=== PATIENT | male | born 1995 | race Caucasian/White ===

== ENCOUNTER 2019-05-23 13:04 | Emergency (ER) | payer BC ==
[2019-05-23 13:33] VITALS: BP 112/66
[2019-05-23 13:58] LABS: Influenza A Molecular POSITIVE (Negative)
--- NOTE | 2019-05-23 14:15 | UC ---
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 He states that he is actually feeling better today. - History of Current Complaint Chief Complaint: UCGeneralIllness Stated Complaint: HEADACHE,THROAT PAIN,CHILLS Time Seen by Provider: 05/23/19 13:44 Hx Obtained From: Patient Onset/Duration: Sudden Onset Severity Currently: Mild Severity Initially: Moderate Pain Intensity: 5 Associated Signs & Symptoms: Positive: Fever, Myalgia, Cough, Sore Throat, Nasal Congestion Related Hx: Possible Flu/Infectious Exposure - Allergy/Home Medications Allergies/Adverse Reactions: Allergies Allergy/AdvReac Type Severity Reaction Status Date / Time No Known Allergies Allergy Verified 05/23/19 13:33 Home Medications: Home Medications NK [No Home Medications Reported] 05/23/19 [History Confirmed 05/23/19] PMH/Surg Hx/FS Hx/Imm Hx Previously Healthy: Yes - Surgical History Surgical History: None - Family History Known Family History: Positive: Non-Contributory - Social History Occupation: Employed Full-time Lives: With Family Alcohol Use: Occasionally Substance Use Type: None Smoking Status (MU): Never Smoked Tobacco Review of Systems All Other Systems Reviewed And Are Negative: Yes Constitutional: Positive: Fever, Chills ENT: Positive: Sore Throat, Nasal Discharge Respiratory: Positive: Cough - Nonproductive dry cough Gastrointestinal: Positive: Vomiting - He vomited one time yesterday Musculoskeletal: Positive: Myalgia Is Patient Immunocompromised?: No Physical Exam Triage Information Reviewed: Yes Appearance: Well-Appearing, No Pain Distress, Well-Nourished Vital Signs: Initial Vital Signs Temp 98 F 05/23/19 13:30 Pulse 100 05/23/19 13:30 Resp 20 05/23/19 13:30 BP 112/66 05/23/19 13:30 Pulse Ox 100 05/23/19 13:30 Vital Signs Reviewed: Yes Eyes: Positive: Conjunctiva Clear ENT: Positive: Pharynx normal, Nasal drainage, TMs normal, Uvula midline Neck: Positive: Supple, Nontender, No Lymphadenopathy Respiratory: Positive: Lungs clear, Normal breath sounds, No respiratory distress, No accessory muscle use Cardiovascular: Positive: RRR, No Murmur, Pulses Normal, Brisk Capillary Refill Abdomen Description: Positive: Nontender, No Organomegaly, Soft. Negative: CVA Tenderness (R), CVA Tenderness (L), Distended, Guarding, Hepatomegaly, McBurney' s Point Tenderness, Splenomegaly Bowel Sounds: Positive: Present Musculoskeletal Exam: Normal Neurological Exam: Normal Psychological Exam: Normal Skin Exam: Normal Flu Course/Dx - Course Course Of Treatment: Rapid flu test: Positive Patient is comfortable here and actually does not appear very ill. - Differential Dx/Diagnosis Provider Diagnosis: Influenza A Discharge ED - Sign-Out/Discharge Documenting (check all that apply): Patient Departure All imaging exams completed and their final reports reviewed: No Studies - Discharge Plan Condition: Good Disposition: HOME Patient Education Materials: Influenza (DC) Referrals: [facility] [Outside] [facility] [Outside] No Primary Care Phys,NOPCP [Primary Care Provider] - Additional Instructions: Increase fluids, [id number] cold medicine as directed. Follow up at [facility] if no improvement in 3 or 4 days. - Billing Disposition and Condition Condition: GOOD Disposition: Home
== END 2019-05-23 14:30 | disposition home or self-care (01) ==
LOC: UCEAST 13:04
DX: J10.1 Influenza due to other identified influenza virus with other respiratory manifestations (principal)
CPT/HCPCS: 99211; G0463

== ENCOUNTER 2019-05-26 12:08 | Emergency (ER) | payer BC ==
[2019-05-26 12:31] VITALS: BP 123/87
--- NOTE | 2019-05-26 13:27 | UC ---
Respiratory Complaint HPI - HPI Summary HPI Summary: started with flu symps last Tues night, next day was seen here and tested positive for flu. 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 Onset/Duration: Sudden Onset Timing: Constant Severity Initially: Severe Severity Currently: Moderate Pain Intensity: 6 Character: Cough: Productive - thick white Aggravating Factors: Nothing Alleviating Factors: Nothing Associated Signs And Symptoms: Positive: Fever - Allergies/Home Medications Allergies/Adverse Reactions: Allergies Allergy/AdvReac Type Severity Reaction Status Date / Time No Known Allergies Allergy Verified 05/26/19 12:31 PMH/Surg Hx/FS Hx/Imm Hx Previously Healthy: Yes - Surgical History Surgical History: None - Family History Known Family History: Positive: None, Non-Contributory - Social History Occupation: Employed Full-time Lives: With Family Alcohol Use: Occasionally Substance Use Type: None Smoking Status (MU): Never Smoked Tobacco Review of Systems All Other Systems Reviewed And Are Negative: Yes Constitutional: Positive: Chills, Fatigue. Negative: Fever Skin: Positive: Negative. Negative: Rash ENT: Positive: Sore Throat. Negative: Ear Ache Respiratory: Positive: Cough Cardiovascular: Positive: Negative Gastrointestinal: Positive: Negative. Negative: Abdominal Pain Musculoskeletal: Positive: Negative. Negative: Arthralgia Neurological/Mental Status: Positive: Negative Psychological: Positive: Negative Is Patient Immunocompromised?: No Physical Exam Triage Information Reviewed: Yes Appearance: Well-Appearing, No Pain Distress, Well-Nourished Vital Signs: Initial Vital Signs Temp 99.2 F 05/26/19 12:28 Pulse 79 05/26/19 12:28 Resp 16 05/26/19 12:28 BP 123/87 05/26/19 12:28 Pulse Ox 99 05/26/19 12:28 Vital Signs Reviewed: Yes Eyes: Positive: Conjunctiva Clear ENT: Positive: Pharynx normal, Nasal congestion. Negative: Nasal drainage Neck exam: Normal Neck: Positive: Supple, Nontender, No Lymphadenopathy Respiratory Exam: Normal Respiratory: Positive: Lungs clear Cardiovascular Exam: Normal Cardiovascular: Positive: RRR Neurological Exam: Normal Psychological Exam: Normal Skin Exam: Normal Skin: Negative: Rashes Respiratory Course/Dx - Differential Dx/Diagnosis Differential Diagnosis/HQI/PQRI: Influenza Provider Diagnosis: Strep pharyngitis Discharge ED - Sign-Out/Discharge Documenting (check all that apply): Patient Departure All imaging exams completed and their final reports reviewed: No Studies - Discharge Plan Condition: Good Disposition: HOME Patient Education Materials: Influenza (ED) Forms: *Work Release Referrals: No Primary Care Phys,NOPCP [Primary Care Provider] - Additional Instructions: rest and drink plenty of fluids continue Theraflu and mucinex ibuprofen or Tylenol for pain and fever return if no better 3-4 days - Billing Disposition and Condition Condition: GOOD Disposition: Home
== END 2019-05-26 13:41 | disposition home or self-care (01) ==
LOC: UCEAST 12:08
DX: J02.0 Streptococcal pharyngitis (principal); R53.83 Other fatigue; R09.81 Nasal congestion
CPT/HCPCS: 87651; 99211; G0463